=== PATIENT | female | born 1935 | race Caucasian/White ===

== ENCOUNTER 2017-06-19 01:21 | Outpatient (CLI) | payer MEDICARE, BC | END 2017-06-19 01:22 | disposition home or self-care (01) | LOC: BICRAD 01:21 | PROVIDERS: ATTEND Anesthesiology Pain Medicine | DX: M43.12 Spondylolisthesis, cervical region (principal); M47.892 Other spondylosis, cervical region | CPT/HCPCS: 72052 ==

== ENCOUNTER 2017-07-07 12:21 | Emergency (ER) | payer MEDICARE, BC ==
[2017-07-07] MEDS ORDERED: HYDROcodone/Acetaminophen 5/325 mg Tablet ONE (14:25)
== END 2017-07-07 14:58 | disposition home or self-care (01) ==
LOC: ERS 12:21
DX: M54.2 Cervicalgia (principal); E03.9 Hypothyroidism, unspecified; K21.9 Gastro-esophageal reflux disease without esophagitis; E78.5 Hyperlipidemia, unspecified; F32.9 Major depressive disorder, single episode, unspecified; I10 Essential (primary) hypertension
CPT/HCPCS: 99283

== ENCOUNTER 2017-08-22 14:19 | Outpatient (CLI) | payer MEDICARE, BC | END 2017-08-22 14:20 | disposition home or self-care (01) | LOC: BICMAMMO 14:19 | PROVIDERS: ATTEND Family Medicine | DX: Z78.0 Asymptomatic menopausal state (principal) | CPT/HCPCS: 77080 ==

== ENCOUNTER 2018-03-04 12:58 | Outpatient (CLI) | payer MEDICARE, BC ==
[2018-03-04 14:33] LABS: #Basophils 0.1 thou/uL (0.0-0.2); #Eosinphils 0.2 thou/uL (0.0-0.7); #Lymphocytes 2.7 thou/uL (1.20-3.40); #Monocytes 0.5 thou/uL (0.11-0.59); %Basophils 0.8 % (0.0-1.0); %Lymphocytes 41.8 % (21.0-51.0); %Monocytes 8.1 % (0.0-10.0); %Neutrophils 46.2 % (42.0-75.0); Hemoglobin 12.5 g/dL (12.0-16.0); Mean Corpuscular HGB CONC 33.6 g/dL (32.0-36.0); Mean Corpuscular Volume 89.2 fL (78.0-98.0); Mean Platelet Volume 7.8 fL (7.4-10.4); Platelet Count 178 thou/uL (130-400); RBC Distribution Width 12.2 % (11.5-14.5); Red Blood Cell (RBC) Count 4.18 mill/uL (4.20-5.40); White Blood Cell (WBC) Count 6.5 thou/uL (4.8-10.8)
[2018-03-04 14:38] LABS: Bilirubin Negative (Negative); Blood, Urine Negative (Negative); Clarity CLEAR (Clear); Glucose, Urine (Dipstick) Negative (Negative); Leukocyte Negative (Negative); Nitrite Negative (Negative); Protein, Urine (Dipstick) Negative (Neg-Trace); Specific Gravity, Urine 1.007 (1.002-1.036); Urobilinogen 0.2 mg/dL (0.2-1.0)
[2018-03-04 14:40] LABS: Bacteria/HPF None Seen HPF (None Seen); Hyaline Casts/LPF 0-3 HYALINE CAST LPF (0-3 Hyaline); RBC/HPF 0-3 HPF (0-3); Squamous Epithelial 0-3 HPF (0-3); WBC/HPF None Seen HPF (0-3)
--- NOTE | 2018-03-06 16:48 | EKG ---
Test Reason : Blood Pressure : / mmHG Vent. Rate : 087 BPM Atrial Rate : 087 BPM P-R Int : 138 ms QRS Dur : 082 ms QT Int : 366 ms P-R-T Axes : 033 044 023 degrees QTc Int : 440 ms Poor data quality, interpretation may be adversely affected Sinus rhythm Premature atrial complexes Otherwise normal ECG Confirmed by SONNY JOSEPH ([id number]) on 03/06/2018 4:48:04 PM Referred By: SISSY Confirmed By:SONNY JOSEPH
== END 2018-03-04 12:59 | disposition home or self-care (01) ==
LOC: LABBT 12:58
PROVIDERS: ATTEND Orthopaedic Surgery Hand Surgery
DX: Z01.818 Encounter for other preprocedural examination (principal); G56.02 Carpal tunnel syndrome, left upper limb
CPT/HCPCS: 81001; 85025; 93005; 93010

== ENCOUNTER → 2018-03-07 | Day surgery (SDC) | payer MEDICARE, BC ==
[2018-03-04 13:48] VITALS: BMI 22.3
[~2018-03-07] MED LIST: Clindamycin/D5W 900 mg/50 ml Premix Bag ONE
== END ==
LOC: SDC 13:12
PROVIDERS: ATTEND Orthopaedic Surgery Hand Surgery
DX: G56.02 Carpal tunnel syndrome, left upper limb (principal); Z79.899 Other long term (current) drug therapy; Z88.0 Allergy status to penicillin; Z88.2 Allergy status to sulfonamides; Z88.8 Allergy status to other drugs, medicaments and biological substances; Z53.9 Procedure and treatment not carried out, unspecified reason
CPT/HCPCS: J3490

== ENCOUNTER 2018-03-08 10:11 | Day surgery (SDC) | payer MEDICARE, BC ==
[2018-03-08] MEDS ORDERED: Betamet Acet/Betamet Na Ph 30 MG/5 ML VIAL ONE (10:59)
[2018-03-08] MEDS ORDERED: Bupivacaine PF 0.5% 30 ML VIAL ONE (10:59)
[2018-03-08] MEDS ORDERED: Bacitracin Zinc Ointment 30 gm TUBE ONE (10:59)
[2018-03-08] MEDS ORDERED: Ketorolac Tromethamine 30 MG/ML VIAL ONE (12:42)
[2018-03-08] MEDS ORDERED: PHENYLEPHRINE-NS 100 MCG/ML 10 ML SYRINGE ONE (15:07)
[2018-03-08] MEDS ORDERED: PROPOFOL 200 MG/20 ML VIAL ONE (15:07)
[2018-03-08] MEDS ORDERED: Lidocaine 1% PF 5 ML VIAL ONE (15:07)
[2018-03-08] MEDS ORDERED: Ondansetron HCl/PF 4 MG/2 ML Vial ONE (15:07)
--- NOTE | 2018-03-12 11:02 | OP ---
DATE OF SURGERY: 03/08/2018 POSTOPERATIVE DIAGNOSIS: Left carpal tunnel syndrome. SURGEON: Nasir Rivas M.D. ANESTHESIA: Taiwanese anesthesia, general LMA technique augmented by a 10 mL of local infiltrated blo ck. PROCEDURES PERFORMED: 1. Left carpal tunnel release. 2. Injection of Celestone in the left carpal tunnel. TOURNIQUET TIME: 8 minutes. ESTIMATED BLOOD LOSS: Less than 5 mL. SPECIMENS: None. FINDINGS: Tight transverse carpal ligament without median nerve, structural changes allograft formation. INDICATION: Failed conservative treatment with positive history, physical, and electrodiagnostic eriberto ting. DESCRIPTION OF PROCEDURE: After successful general LMA technique, the limb was then prepped and drap ed. Time out was done appropriately. Limb was exsanguinated, tourniquet inflated to 250 mmHg pressu re and incision was outlined in line with the finger as far medial, lateral, distal and proximal betw een Castellano's cardinal lines and the 5 mm distal volar wrist flexion crease. The patient then had the incision carried through the skin and subcutaneous tissue to reach the transcarpal ligament. At a p oint just in the ulnar bed of the palmaris longus, we entered the transcarpal ligament mid portion. From here, we entered using a combination of a Ringgold blade and tenotomy scissors from here distally motor nerve primary sensory branch. We then performed the same procedure from the mid portion proximally, elevating the skin of the trans carpal ligament and visualized transcarpal ligament for full release. Tourniquet deflated, hemostasis obtained. We placed oversewn 5 mL around the median nerve and closed the wound with interrupted 4-0 nylon in a horizontal mattress pattern. The patient then left the op erating room with a bulky dressing. No evidence of anesthetic or operative complication.
== END 2018-03-08 14:00 | disposition home or self-care (01) ==
LOC: SDC 10:11
PROVIDERS: ATTEND Orthopaedic Surgery Hand Surgery
PROC: 01N50ZZ Release Median Nerve, Open Approach (ICD-10-PCS; principal; 2018-03-08)
DX: G56.03 Carpal tunnel syndrome, bilateral upper limbs (principal); G56.21 Lesion of ulnar nerve, right upper limb; M18.0 Bilateral primary osteoarthritis of first carpometacarpal joints; M19.041 Primary osteoarthritis, right hand; M19.042 Primary osteoarthritis, left hand; M67.40 Ganglion, unspecified site; K21.9 Gastro-esophageal reflux disease without esophagitis; E03.9 Hypothyroidism, unspecified; Z79.899 Other long term (current) drug therapy; E78.00 Pure hypercholesterolemia, unspecified; Z88.0 Allergy status to penicillin; Z88.2 Allergy status to sulfonamides; Z88.8 Allergy status to other drugs, medicaments and biological substances
CPT/HCPCS: J0702; J1885; J2001; J2405; J2704; S0020

== ENCOUNTER 2018-10-06 13:17 | Outpatient (CLI) | payer MEDICARE, BC ==
--- NOTE | 2018-10-06 14:11 | RAD ---
PA AND LATERAL VIEWS CHEST: Date: 10/06/18 HISTORY: Atrial fibrillation. FINDINGS: Comparison made with exam of 03/10/15. The heart size is normal. The aorta is tortuous. The lungs are well expanded without focal areas of c onsolidation, pneumothoraces, or pleural effusions. There are degenerative changes in the spine and a cromioclavicular joints. IMPRESSION: No radiographic evidence of acute cardiopulmonary process. POS: TPC
== END 2018-10-06 13:18 | disposition home or self-care (01) ==
LOC: BICRAD 13:17
PROVIDERS: ATTEND Family Medicine
DX: I48.91 Unspecified atrial fibrillation (principal); M89.8X1 Other specified disorders of bone, shoulder; M18.0 Bilateral primary osteoarthritis of first carpometacarpal joints
CPT/HCPCS: 71046

== ENCOUNTER 2018-11-19 15:21 | Emergency (ER) | payer MEDICARE, BC ==
[2018-11-19 16:09] LABS: #Basophils 0.1 thou/uL (0.0-0.2); #Eosinphils 0.1 thou/uL (0.0-0.7); #Lymphocytes 2.7 thou/uL (1.20-3.40); #Monocytes 0.5 thou/uL (0.11-0.59); #Neutrophils 4.6 thou/uL (1.40-6.50); %Basophils 1.1 % (0.0-1.0); %Eosinophils 1.1 % (0.0-10.0); %Lymphocytes 33.7 % (21.0-51.0); %Monocytes 6.7 % (0.0-10.0); %Neutrophils 57.4 % (42.0-75.0); Hemoglobin 12.9 g/dL (12.0-16.0); Mean Corpuscular HGB CONC 32.7 g/dL (32.0-36.0); Mean Corpuscular Hemoglobin 28.7 pg (27.0-31.0); Mean Corpuscular Volume 87.8 fL (78.0-98.0); Mean Platelet Volume 8.4 fL (7.4-10.4); Platelet Count 189 thou/uL (130-400); RBC Distribution Width 12.2 % (11.5-14.5); Red Blood Cell (RBC) Count 4.49 mill/uL (4.20-5.40)
[2018-11-19 16:31] LABS: ALT (SGPT) 7 U/L (8-55); AST (SGOT) 13 U/L (5-34); Alkaline Phosphatase 90 U/L (40-150); Anion Gap 14 mmol/L (10-20); BUN (Urea Nitrogen) 19 mg/dL (9.8-20.1); Bilirubin, Total 0.7 mg/dL (0.2-1.2); Calc. Creatinine Clearance 0 mL/min (70-130); Calcium 9.3 mg/dL (7.8-10.44); Carbon Dioxide 24 mmol/L (23-31); Chloride 103 mmol/L (98-107); Estimated GFR-MDRD 48; Globulin 2.5 g/dL (2.4-3.5); Glucose 95 mg/dL (83-110); Lipase 22 U/L (8-78); Potassium 3.5 mmol/L (3.5-5.1); Protein, Total 6.5 g/dL (6.0-8.3); Sodium 137 mmol/L (136-145)
[2018-11-19 17:36] LABS: Bilirubin Negative (Negative); Blood, Urine Negative (Negative); Clarity CLEAR (Clear); Glucose, Urine (Dipstick) Negative (Negative); Leukocyte Negative (Negative); Nitrite Negative (Negative); Protein, Urine (Dipstick) Negative (Neg-Trace); Specific Gravity, Urine 1.008 (1.002-1.036); Urobilinogen 0.2 mg/dL (0.2-1.0)
--- NOTE | 2018-11-19 18:45 | CT ---
CT OF THE ABDOMEN AND PELVIS WITH IV CONTRAST 11/19/18 PROVIDED CLINICAL HISTORY: Abdominal pain. FINDINGS: The visualized lung bases are free of significant opacity. The liver, spleen, pancreas, kidneys and adrenal glands demonstrate an unremarkable CT appearance. Ch anges of prior cholecystectomy are seen. There is no bowel dilatation, inflammatory fat stranding, free fluid, or free air apparent. There is no evidence for appendicitis. Vascular calcifications are noted involving the abdominal aorta and its branches. The osseous structures demonstrate no concerning lytic or blastic lesions. Prominent lumbar spine deg enerative changes are seen. IMPRESSION: No evidence for an acute process. Chronic findings as above. POS: ISABEL
--- NOTE | 2018-11-22 11:09 | EKG ---
Test Reason : Blood Pressure : / mmHG Vent. Rate : 091 BPM Atrial Rate : 091 BPM P-R Int : 130 ms QRS Dur : 080 ms QT Int : 350 ms P-R-T Axes : 029 057 044 degrees QTc Int : 430 ms Sinus rhythm with Premature atrial complexes Otherwise normal ECG Confirmed by ZULEIMA MÉNDEZ M.D. ([id number]), publication editor JORDI CHAVEZ ([id number]) on 11/22/2018 11:08:54 AM Referred By: Confirmed By:ZULEIMA MÉNDEZ M.D.
== END 2018-11-19 19:51 | disposition home or self-care (01) ==
LOC: ERS 15:21
DX: R10.9 Unspecified abdominal pain (principal); E03.9 Hypothyroidism, unspecified; K21.9 Gastro-esophageal reflux disease without esophagitis; E78.5 Hyperlipidemia, unspecified; I10 Essential (primary) hypertension; F32.9 Major depressive disorder, single episode, unspecified
CPT/HCPCS: 36415; 74177; 80053; 81003; 83690; 85025; 93005

== ENCOUNTER 2019-04-01 12:21 | Outpatient (CLI) | payer MEDICARE, BC ==
--- NOTE | 2019-04-01 15:09 | CT ---
CT Chest W Con: 04/01/2019 12:00 AM CLINICAL INDICATION: Chest pain. COMPARISON: March 23, 2019. FINDINGS: Lung and Large Airways: Normal. Pleura: No effusion or mass. Vessels: There are prominent coronary artery and thoracic aortic calcifications. Heart: Normal appearing. No pericardial effusion.. Mediastinum and Debbie: Normal. Chest Wall and Lower Neck: Normal. Upper Abdomen: The gallbladder is surgically absent. Adrenal glands are normal appearing. Bones: No acute osseous abnormality. There is scattered degenerative and osteoarthritic change. There is mild thoracolumbar scoliosis. IMPRESSION: No acute abnormality.
[2019-04-01] MEDS ORDERED: ISOVUE-370 76%-LOCM 1 ML ONE (18:01)
== END 2019-04-01 12:22 | disposition home or self-care (01) ==
LOC: BICCT 12:21
PROVIDERS: ATTEND Nurse Practitioner Family
DX: R07.89 Other chest pain (principal)
CPT/HCPCS: 71260; 82565; Q9966

== ENCOUNTER 2019-05-15 16:06 | Inpatient (IN) | payer MEDICARE, BC ==
[2019-05-15 17:17] LABS: #Eosinphils 0.1 thou/uL (0.0-0.7); #Lymphocytes 2.6 thou/uL (1.20-3.40); #Monocytes 0.5 thou/uL (0.11-0.59); #Neutrophils 5.8 thou/uL (1.40-6.50); %Basophils 0.3 % (0.0-1.0); %Eosinophils 1.2 % (0.0-10.0); %Lymphocytes 28.2 % (21.0-51.0); %Monocytes 5.8 % (0.0-10.0); %Neutrophils 64.5 % (42.0-75.0); Hemoglobin 13.2 g/dL (12.0-16.0); Mean Corpuscular Hemoglobin 28.9 pg (27.0-31.0); Mean Corpuscular Volume 87.7 fL (78.0-98.0); Mean Platelet Volume 7.8 fL (7.4-10.4); Platelet Count 188 thou/uL (130-400); RBC Distribution Width 12.7 % (11.5-14.5); Red Blood Cell (RBC) Count 4.58 mill/uL (4.20-5.40)
[2019-05-15 17:26] LABS: PTT 30.6 SEC (22.9-36.1); Prothrombin Time 13.4 SEC (12.0-14.7)
--- NOTE | 2019-05-15 17:34 | CT ---
CT HEAD WITHOUT IV CONTRAST COMPARISON: 10/10/2013 HISTORY: Intermittent dizziness for several weeks. TECHNIQUE: Axial CT imaging at 5 mm intervals from vertex through skull base without contrast FINDINGS: There is diffuse cerebral and cerebellar volume loss. There is prominence of the extra-axial spaces i n the bifrontal regions which is an interval change from the prior study, but this may be related to greater degree of cerebral volume loss since prior study or possibly secondary to bilateral subdur al hygromas. 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 A few additional scattered areas of decreased attenuation are seen within the periventricular white matter which are nonspecific but likely reflective of chronic small vessel ischemic changes. There is no evidence of an acute cortical infarction, hemorrhage, mass effect, or midline shift. The ventricular system is normal in size, shape, and position. Visualized paranasal sinuses are clear. Osseous structures appear intact. IMPRESSION: 1. No acute intracranial abnormality demonstrated. 2. Cerebral and cerebellar volume loss. There is prominence of the extra-axial spaces bilaterally in each frontal region which is more prominent than on the prior study. These findings may be attributable to greater degree of cerebral volume loss. Small subdural hygromas cannot be entirely ex cluded. 3. Chronic small vessel ischemic changes.
[2019-05-15 17:41] LABS: ALT (SGPT) 7 U/L (8-55); AST (SGOT) 12 U/L (5-34); Albumin 3.7 g/dL (3.4-4.8); Alkaline Phosphatase 89 U/L (40-110); Anion Gap 17 mmol/L (10-20); BUN (Urea Nitrogen) 21 mg/dL (9.8-20.1); Bilirubin, Total 0.9 mg/dL (0.2-1.2); Calc. Creatinine Clearance 0 mL/min (70-130); Calcium 8.6 mg/dL (7.8-10.44); Carbon Dioxide 22 mmol/L (23-31); Chloride 102 mmol/L (98-107); Estimated GFR-MDRD 47; Globulin 2.1 g/dL (2.4-3.5); Glucose 91 mg/dL (83-110); Potassium 3.5 mmol/L (3.5-5.1); Protein, Total 5.8 g/dL (6.0-8.3); Sodium 137 mmol/L (136-145)
[2019-05-15 18:29] LABS: Bilirubin Negative (Negative); Blood, Urine Negative (Negative); Clarity Clear (Clear); Glucose, Urine (Dipstick) Normal (Negative); Leukocyte Negative Leu/uL (Negative); Nitrite Negative (Negative); Protein, Urine (Dipstick) Negative (Neg-Trace); Urobilinogen Normal mg/dL (Less than 2)
[2019-05-15] MEDS ORDERED: hydrALAZINE 20 MG/ML VIAL SLOW IVP PRN (18:34)
[2019-05-15] MEDS ORDERED: Acetaminophen 650 MG Suppository PR PRN (18:38)
[2019-05-15] MEDS ORDERED: Acetaminophen 325 MG TAB PO PRN (18:38)
[2019-05-15] MEDS ORDERED: Ondansetron ODT 4 MG TAB PO PRN (18:38)
[2019-05-15] MEDS ORDERED: Ondansetron PF 4 MG/2 ML Vial IVP PRN (18:38)
[2019-05-15] MEDS ORDERED: Sodium Chloride 0.45% 1,000 ML IV SCH (19:00)
[2019-05-15 19:45] LABS: Amphetamine Not Detected (NotDetected); Barbiturates Screen Not Detected (NotDetected); Benzodiazepine Screen Not Detected (NotDetected); Cocaine Metabolite Screen Not Detected (NotDetected); Medtox Control Line Valid? VALID (VALID); Medtox Reader # READER 4; Methadone Not Detected (NotDetected); Methamphetamine Not Detected (NotDetected); Opiate Screen Not Detected (NotDetected); Oxycodone Screen Not Detected (NotDetected); Phencyclidine (PCP) Not Detected (NotDetected); THC/Cannabinoid Screen Not Detected (NotDetected); Tricyclic Screen Not Detected (NotDetected)
--- NOTE | 2019-05-15 20:40 | HP ---
TIME OF ADMISSION: 1800 hours. PRIMARY CARE PHYSICIAN: Shine Garzon DO CHIEF COMPLAINT: Feeling lightheaded. HISTORY OF PRESENT ILLNESS: Ms. Mcclellan is an 83-year-old woman, who was brought in by her daughters due to complaints of lightheadedness for the last couple of weeks. She apparently had a fall on the May 06 that was unwitnessed. The patient does not recall the events and the only thing she remembers is getting up from a chair in her home where she was alone and feeling something dripping on the side of her left cheek. She was found to have a small wound with slight bleeding and developed israel-blue swelling and bruising on the left side. The patient reports having a history of migraines and has had occasional low-grade headaches. She does not remember having any falls. She does complain of numbness and weakness in both hands, but states this is associated with a history of carpal tunnel affecting her wrist bilaterally. She reports feeling lightheaded and states it has been intermittent. There is no real pattern. It does not happen every time she changes position. She has not had any recent vision changes. The family has noticed for the last few days that she has been very fidgety, often moving her legs or her arms and her lips, at times smacking her lips. She was noted yesterday to have a slight droop on the right side of her face. The patient denies noting any facial weakness or numbness. Denies any extremity weakness or numbness. Has not had an altered gait. Denies any chest pain, palpitations, or shortness of breath. According to family, she was recently placed on Eliquis by a physician at [facility] for atrial fibrillation. She was then seen by her sales manager prearranged funerals and apparently told she did not have atrial fibrillation. The patient then discontinued Eliquis on her own. In the emergency department, she underwent laboratory studies, which showed a normal full blood count. She is noted to have an elevated BUN of 21 and creatinine of 1.11, which is slightly higher from baseline. She has a GFR 47, which is stable. LFTs unremarkable. She had a urinalysis done, which was negative. A CT of the head was done showing diffuse cerebral and cerebellar volume loss with prominence of the extra-axial spaces in the bifrontal regions, felt to be an interval change compared to previous study in 2014. This was felt to be related to a greater degree of cerebral volume loss since prior study or possibly secondary to bilateral subdural hygromas. There was a low-density focus seen in the right anterior frontal lobe periventricular white matter, which was not present previously. [place] to represent a remote white matter infarction. Chronic small vessel ischemic changes present. No acute intracranial abnormality demonstrated. PAST MEDICAL HISTORY: 1. Bilateral carpal tunnel. 2. Glaucoma. 3. Hypothyroidism. 4. GERD. 5. Hyperlipidemia. 6. Hypertension. 7. Arthritis. 8. Depression. PAST SURGICAL HISTORY: 1. Bilateral carpal tunnel surgery. 2. Thyroidectomy. 3. Breast nodule removed, 2 from right, 1 from left. 4. Right eye cataract surgery. 5. x1. 6. Hysterectomy. 7. Cholecystectomy. SOCIAL HISTORY: The patient denies any tobacco use, alcohol consumption, or illicit drug use. She lives alone. ALLERGIES: GABAPENTIN, PENICILLIN, SULFA. CURRENT MEDICATIONS: 1. Detrol LA. 2. Climara. 3. Levothyroxine. 4. Losartan. 5. Hydrochlorothiazide. 6. Lumigan. PHYSICAL EXAMINATION: GENERAL: The patient appears thin, well developed, in no acute distress, resting comfortably on the stretcher. VITAL SIGNS: Temperature 97.6, pulse 100, blood pressure 114/57, respirations 17, O2 saturation 96% on room air. HEENT: Normocephalic, atraumatic. Pupils are equal, round, and reactive to light. Sclerae without icterus. Oropharynx is clear. The patient with old bruising along the left side of cheek and no bone deformity. Extraocular movements intact. No nystagmus present. NECK: Supple without lymphadenopathy. LUNGS: Clear to auscultation bilaterally without any wheezes, rales, or rhonchi. CARDIAC: Regular rate and rhythm. ABDOMEN: Soft, nontender, nondistended. Normoactive bowel sounds present. EXTREMITIES: No lower leg swelling or edema. NEUROLOGIC: Alert and oriented x3. Speech is normal. However, with constant smacking movement of her lips and fidgeting of the left arm. The patient able to answer questions appropriately and able to follow commands. Power 5/5 in all extremities. No altered sensation or numbness. Able to straight leg raise against resistance bilaterally. Reflexes intact. SKIN: Warm and dry. INVESTIGATIONS: As mentioned above in HPI. IMPRESSION AND PLAN: Ms. Mcclellan is an 83-year-old woman, who has been referred for the following. 1. Transient ischemic attack, rule out. The patient with a syncopal episode, unwitnessed, with no recollection of events on the May 06. Since then, reported to have had development of right-sided facial drooping and fidgeting of her left arm with constant uncontrollable movement of her facial muscles and left arm. The patient with no weakness or numbness on exam. We will obtain further imaging with an MRI of the brain. Echo and carotid Doppler are requested. Consultation placed to Neurology. The patient remained asymptomatic. We will require a bedside dysphagia screening prior to clearing her TIA. PT/OT consultation requested. We will start aspirin and statin. Lipid panel to be checked with morning labs. 2. Syncope. The patient presumed to have had a syncopal and unwitnessed syncopal episode, though she has no recollection of events. EKG done in the ER showed normal sinus rhythm with a rate of 94 and premature atrial contractions. She will need continuous telemetry monitoring. As mentioned, echo has been requested as well as carotid Dopplers. Orthostatic blood pressure readings to be done. 3. Hypothyroidism. We will resume home medications once verified. We will check a TSH. 4. Hypertension. Resume home medications once verified. Monitor blood pressure. 5. Acute on chronic kidney injury. The patient with elevated creatinine from baseline, but GFR stable. We will give gentle hydration and monitor renal function. Hold any nephrotoxic medications. 6. Gastrointestinal prophylaxis. On famotidine 20 mg IV b.i.d. 7. Deep venous thrombosis prophylaxis. On mechanical SCDs. 8. Code status, full. Her surrogate decision maker is her daughter, . The patient's case discussed with attending, who agrees with plan of care as described above. Job ID: [id number]
[2019-05-15] MEDS: Famotidine/PF 20 mg/2ml Vial SLOW IVP SCH (23:42)
[2019-05-15] MEDS: Atorvastatin Calcium 40 MG TAB PO SCH (23:42)
[2019-05-16 02:09] VITALS: BMI 21.7
[2019-05-16 05:49] LABS: #Basophils 0.1 thou/uL (0.0-0.2); #Eosinphils 0.2 thou/uL (0.0-0.7); #Lymphocytes 2.5 thou/uL (1.20-3.40); #Monocytes 0.6 thou/uL (0.11-0.59); #Neutrophils 3.8 thou/uL (1.40-6.50); %Basophils 0.7 % (0.0-1.0); %Eosinophils 2.6 % (0.0-10.0); %Lymphocytes 34.6 % (21.0-51.0); %Monocytes 8.8 % (0.0-10.0); %Neutrophils 53.3 % (42.0-75.0); Hemoglobin 12.5 g/dL (12.0-16.0); Mean Corpuscular HGB CONC 33.4 g/dL (32.0-36.0); Mean Corpuscular Hemoglobin 29.2 pg (27.0-31.0); Mean Corpuscular Volume 87.4 fL (78.0-98.0); Platelet Count 177 thou/uL (130-400); RBC Distribution Width 12.5 % (11.5-14.5); Red Blood Cell (RBC) Count 4.27 mill/uL (4.20-5.40); White Blood Cell (WBC) Count 7.1 thou/uL (4.8-10.8)
[2019-05-16 06:02] LABS: Anion Gap 13 mmol/L (10-20); BUN (Urea Nitrogen) 18 mg/dL (9.8-20.1); Calc. Creatinine Clearance 29 mL/min (70-130); Calcium 8.5 mg/dL (7.8-10.44); Carbon Dioxide 23 mmol/L (23-31); Cardiac Risk 3.4 (Less than 4.5); Chloride 103 mmol/L (98-107); Cholesterol 171 mg/dl (< 200 Desired); Estimated GFR-MDRD 49; Glucose 93 mg/dL (83-110); HDL Cholesterol 51 mg/dL (>60 Neg Risk); LDL Cholesterol, Calculated 107 mg/dL; Potassium 3.9 mmol/L (3.5-5.1); Sodium 135 mmol/L (136-145); Triglycerides 67 mg/dL (Less than 150)
[2019-05-16] MEDS: Levothyroxine Sodium 88 MCG TAB PO SCH (06:35)
[2019-05-16] MEDS ORDERED: FLU VACC TS2019-20(65YR UP)/PF 180 MCG/0.5 ML SYRINGE IM ONE (09:00)
[2019-05-16] MEDS ORDERED: Aspirin 81 mg Enteric Coated Tablet PO SCH (09:00)
[2019-05-16] MEDS ORDERED: Prevnar 13-Val Conj/PF 0.5 ML SYRINGE IM ONE (09:00)
--- NOTE | 2019-05-16 09:10 | CON ---
DATE OF CONSULTATION: 05/16/2019 CONSULTING PHYSICIAN: Hospitalist Service. IMPRESSION: 1. Facial asymmetry of questionable significance. 2. Lightheaded episodes, probably cardiac in origin. PLAN: Your workup is you have undertaken. HISTORY OF PRESENT ILLNESS: Ms. Mcclellan is an 83-year-old white female, who has been having some lightheaded episodes. This has been going on for the last 9 days or so. She was thought to have some facial droop and was brought in by her family for evaluation. She had a CT scan of the brain done, which showed some chronic small vessel ischemic changes. She denies that she is having any trouble with her speech, swallowing, lateralized weakness or numbness. She reports the lightheadedness is occurring sporadically over the last several days, but she has not lost consciousness. She had an unexplained injury to her left eye, which she reports was present after she woke up. This was several days ago. She previously was seen by Cardiology due to concerns about atrial fibrillation. This issue apparently was dismissed. She had been on Eliquis in the past and this was discontinued. PAST MEDICAL HISTORY: Gout, migraine headaches. ALLERGIES: PENICILLIN, GABAPENTIN, AND SULFA. SOCIAL HISTORY: No tobacco or alcohol. FAMILY HISTORY: Noncontributory. REVIEW OF SYSTEMS: Ten-system review of systems is otherwise negative. MEDICATIONS: Reviewed. PHYSICAL EXAMINATION: GENERAL: She is a healthy-appearing elderly lady, lying in bed, in no acute distress. VITAL SIGNS: Blood pressure 121/57, pulse 72, respirations 16, and temperature 97.9. HEENT: Pupils are equal. Conjunctivae are clear. Oropharynx clear. Cranium; normocephalic and atraumatic. NECK: Supple. No lymphadenopathy. EXTREMITIES: No cyanosis or edema. NEUROLOGIC: She is alert and cooperative. Her speech is fluent and clear. Cranial nerve exam showed some facial asymmetry with a slight flattening present on the right. Motor exam showed good cat skinner strength bilaterally. There is no fix or drift. No tremor or dysmetria is present. Sensation was intact to touch. She can walk independently. Plantar responses are downgoing. IMAGING DATA: EKG, normal sinus rhythm. LABORATORY STUDIES: Unremarkable CBC, coags, and chemistry panel. Cholesterol ratio is 3.4. Urinalysis was clear. Toxicology screen was negative. SUMMARY: This is an elderly lady with a slight facial asymmetry. I doubt it has much clinical significance. She has been having some lightheaded episodes, which could be related to hypotension or possibly cardiac arrhythmia. I agree with your workup in that regard. Given her current findings, I would not recommend anything more than aspirin daily. Job ID: [id number]
[2019-05-16] MEDS: Loratadine 10 MG TAB PO SCH (09:45)
[2019-05-16] MEDS: Trospium 20 MG TAB PO SCH (09:45)
[2019-05-16] MEDS: Famotidine/PF 20 mg/2ml Vial SLOW IVP SCH (09:46)
--- NOTE | 2019-05-16 10:09 | ULT ---
EXAM: Carotid vascular duplex with color and spectral Doppler imaging: HISTORY: TIA/CVA COMPARISON: None FINDINGS: Very extensive intraluminal dense thrombus resulting in occlusion of the distal right CCA and proxima l ICA. Right ICA: PSV: Occluded EDV: Occluded ICA/CCA ratio: Occluded Left ICA: PSV: 79 cm/s EDV: 25 cm/s ICA/CCA ratio: 0.6 Antegrade flow in the left vertebral artery. The right vertebral artery was not demonstrated.. 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 Right vertebral artery not demonstrated.
--- NOTE | 2019-05-16 12:21 | MRI ---
EXAM: MRI Brain WO Con PROVIDED CLINICAL HISTORY: Intermittent dizziness for several weeks. Family reports right-sided facial droop. COMPARISON: CT head on 05/15/2019. FINDINGS: There is a very small right subdural collection demonstrating low T1 and high T2-weighted signal inte nsity as well as low signal intensity on diffusion-weighted images. Findings are most compatible with a small subdural hematoma likely subacute to chronic in origin. Probable trace subdural collecti on on the left, although much less perceptible and very small in size. Greatest transverse dimension on the right is 5-6 mm. There is diffuse cerebral volume loss. Increased FLAIR and T2-weighted signal intensity is seen withi n the periventricular and subcortical white matter compatible with chronic small vessel ischemic changes. Cavitated lacunar infarction is seen in the right frontal johansen radiata. There is no eviden ce of an acute infarction. The septum pellucidum and third ventricle are in the midline. Appropriate flow voids are demonstrated at the base of the brain with mild ectasia of the left middle cerebral artery. The paranasal sinuses are clear. The northern [place]rapaho lens on the right is not visualized. IMPRESSION: 1. Chronic small vessel ischemic changes and cerebral volume loss. 2. No acute infarction is identified. 3. Very small right frontal and trace left frontal subacute to chronic subdural hemorrhages.
--- NOTE | 2019-05-16 13:18 | PDOC.HOSPP ---
- Subjective Subjective: Seen and examined. Patient states that she had a remote fall on May 06. Very small bilateral subdural hematoma seen on MRI. I do not appreciate any focal neurologic deficits on neurologic exam. All questions answered in detail. Patient does not complain of any dizziness currently. - Objective Vital Signs & Weight: Vital Signs (12 hours) Temp Pulse Resp BP BP BP BP 05/16/19 12:25 98.1 F 97 18 111/62 05/16/19 10:02 127/63 116/57 L 125/58 L 05/16/19 07:24 97.9 F 72 16 121/57 L 05/16/19 04:00 97.6 F 86 16 117/60 Pulse Ox 05/16/19 12:25 99 05/16/19 10:02 05/16/19 07:24 99 05/16/19 04:00 98 Weight Weight 100 lb 11.2 oz I&O: 05/15/19 05/16/19 05/17/19 06:59 06:59 06:59 Intake Total 616 240 Balance 616 240 Result Diagrams: 05/16/19 05:33 05/16/19 05:33 Radiology Reviewed by me: Yes Hospitalist ROS - Review of Systems All other systems reviewed; all pertinent +/- noted in HPI/Subj - Medication Medications: Active Medications Generic Name Dose Route Start Last Admin Trade Name Braulio PRN Reason Stop Dose Admin Aspirin 81 mg 05/16/19 09:00 05/16/19 09:46 Ecotrin PO 81 mg DAILY STERLING Administration Atorvastatin Calcium 40 mg 05/15/19 21:00 05/15/19 23:42 Lipitor PO 40 mg HS STERLING Administration HCTZ/Losartan Potassium 1 tab 05/16/19 09:00 05/16/19 09:45 Hyzaar 50/12.5 PO 1 tab QAM STERLING Administration Levothyroxine Sodium 88 mcg 05/16/19 06:00 05/16/19 06:35 Synthroid PO 88 mcg 0600 STERLING Administration Loratadine 10 mg 05/16/19 09:00 05/16/19 09:45 Claritin PO 10 mg QAM STERLING Administration Sodium Chloride 10 ml 05/15/19 18:38 05/16/19 07:42 Flush - Normal Saline IVF Not Given Q12H STERLING Trospium 20 mg 05/16/19 09:00 05/16/19 09:45 Trospium PO 20 mg QAM STERLING Administration - Exam General Appearance: NAD, awake alert Eye: PERRL ENT: normocephalic atraumatic, moist mucosa Neck: supple, symmetric, no lymphadenopathy Heart: no murmur, no gallops, no rubs Respiratory: CTAB, no wheezes, no rales, no ronchi Gastrointestinal: soft, non-tender, no rigidity Extremities: no clubbing, no edema Skin: no lesions, no rashes Neurological: cranial nerve grossly intact, normal sensation to touch, no focal deficits. negative: speech deficit Musculoskeletal: normal tone, normal strength Psychiatric: normal affect, A&O x 3 Hosp A/P (1) Subdural hematoma Code(s): S06.5X9A - TRAUM SUBDR HEM W LOC OF UNSP DURATION, INIT Status: Acute (2) Fall Code(s): W19.XXXA - UNSPECIFIED FALL, INITIAL ENCOUNTER Status: Acute (3) Dizziness Code(s): R42 - DIZZINESS AND GIDDINESS Status: Acute (4) HTN (hypertension) Code(s): I10 - ESSENTIAL (PRIMARY) HYPERTENSION Status: Acute (5) HLD (hyperlipidemia) Code(s): E78.5 - HYPERLIPIDEMIA, UNSPECIFIED Status: Acute (6) Hypothyroid Code(s): E03.9 - HYPOTHYROIDISM, UNSPECIFIED Status: Acute - Plan Plan: stroke unit - medical unit telemetry neurology consultation, recommendations appreciated MRI the brain with small subdural hematoma's bilaterally fall with trauma on May 06 likely cause of subdural hematoma's hold aspirin, NSAIDs, or any blood thinners blood pressure control statin continue other home medications as able echocardiogram pending ultrasound of the carotid with complete occlusion of the right, no comment on the left will need to follow up in the outpatient setting and may benefit from a CTA head and neck blood sugar control
[2019-05-16] MEDS: Atorvastatin Calcium 40 MG TAB PO SCH (20:32)
[2019-05-16] MEDS ORDERED: Latanoprost 0.005% Ophth Soln 2.5 ml Bottle EA EYE SCH (21:00)
[2019-05-17 04:24] VITALS: TEMP 98.2
[2019-05-17] MEDS: Levothyroxine Sodium 88 MCG TAB PO SCH (05:16)
[2019-05-17 08:07] VITALS: BP 144/70
[2019-05-17] MEDS ORDERED: Estradiol 0.05mg/24 Hour Patch (Weekly) TD SCH (09:00)
[2019-05-17] MEDS ORDERED: Famotidine/PF 20 mg/2ml Vial SLOW IVP SCH (09:00)
[2019-05-17] MEDS: Loratadine 10 MG TAB PO SCH (09:07)
[2019-05-17] MEDS: Trospium 20 MG TAB PO SCH (09:07)
--- NOTE | 2019-05-17 18:28 | DIS ---
DATE OF ADMISSION: 05/16/2019 DATE OF DISCHARGE: 05/17/2019 REASON FOR HOSPITALIZATION: Dizziness and remote fall. SIGNIFICANT FINDINGS: The patient was found to have very small bilateral subdural hematomas on MRI of the brain. PROCEDURES PERFORMED AND TREATMENTS RENDERED: The patient was admitted to the medical unit with telemetry and monitored on continuous telemetry for her hospitalization. The patient was seen and evaluated by Neurology, please see full consultation and progress notes for details. The patient had a stroke workup including MRI of the brain, ultrasound of the carotids, and echocardiogram-please see full report for details. The patient recommended safe for discharge by Neurology on 05/17/2019, with close followup in the outpatient setting. The patient is recommended to take all medications as directed. The patient is recommended to abstain from aspirin, nonsteroidal anti-inflammatory drugs such as Motrin, ibuprofen, Aleve, or naproxen. The patient is also recommended to abstain from Eliquis or any other blood thinner medications. CONDITION ON DISCHARGE: Stable. SPECIFIC INSTRUCTIONS FOR THE PATIENT/FAMILY: 1. The patient is recommended to abstain from any blood thinning medications such as but not limited to Eliquis, aspirin, NSAIDs such as ibuprofen, naproxen, Aleve, or any other nonsteroidal anti-inflammatory drugs or blood thinning medications. 2. The patient is recommended to follow up with Neurology in the outpatient clinic in the next 3 to 4 weeks. 3. The patient is recommended to have followup neurologic imaging as coordinated by Neurology with either a CT scan or an MRI of the brain. 4. The patient is recommended to follow up with primary care physician in the next 5 to 7 days. 5. The patient is recommended to take all home medications as directed, to be re-evaluated by primary care physician and Neurology in the outpatient setting. DISCHARGE MEDICATIONS: 1. Tramadol 50 mg one tablet p.o. daily p.r.n. pain. 2. Tolterodine 4 mg p.o. q.a.m. 3. Losartan/hydrochlorothiazide 50/12.5 one tablet p.o. q.a.m. 4. Synthroid 88 mcg one tablet p.o. q.a.m. 5. Estradiol patch 0.05 mg topical q.7 days. 6. Codeine 30 mg p.o. p.r.n. cough. 7. Zyrtec 10 mg p.o. q.a.m. p.r.n. allergy symptoms. 8. Bimatoprost one drop each eye at bedtime. 9. Atorvastatin 40 mg one tablet p.o. at bedtime. 10. Tylenol regular strength 650 mg q.4 hours p.r.n. pain or fever. HOSPITAL COURSE: Ms. Mcclellan is a very pleasant 83-year-old female who presents to [facility] on 05/15/2019, after a remote fall and dizziness. The patient was admitted to the Stroke Unit and monitored on continuous telemetry. The patient was seen and evaluated by Neurology-please see full consultation and progress notes for details. The patient had appropriate CVA workup including a CT scan of the brain, carotid ultrasound, echocardiogram, and MRI of the brain-please see full radiographic reports for details. It was found that the patient had very small bilateral subdural hematomas and a subacute chronicity. These are likely secondary to the patient's recent fall. The patient did show me on her telephone the pictures after the fall and she did have significant periorbital bruising, however, there were no other signs of acute fracture or other acute pathology seen on CT scan or MRI of the brain. The patient worked with Physical Therapy and Occupational Therapy and was recommended safe for discharge home. Neurology recommending the patient safe for discharge home with followup in the outpatient setting. The patient may require followup imaging for resolution of subdural hematoma. This can be completed with CT scan or MRI of the brain in the outpatient setting in the upcoming weeks as scheduled by neurologist. The patient was recommended to abstain from any blood thinning medications including but not limited to Eliquis, aspirin, Motrin, ibuprofen, naproxen, Aleve-or any other blood thinning medications or nonsteroidal anti-inflammatory drugs. The patient repeated this word for me back with good comprehension in the presence of nursing staff. The patient recommended safe for discharge with close followup in the outpatient setting with primary care physician in the next 5 to 7 days and Neurology in the next 3 to 4 weeks. The patient is recommended to take all medications as directed. The patient is recommended to return to acute care hospital immediately if signs or symptoms return, worsen, or any other new symptoms occur. TIME SPENT: Greater than 36 minutes spent coordinating care and discharge process for this patient. Job ID: [id number]
--- NOTE | 2019-05-19 08:16 | PQF ---
LEILANI SOLANO ERIK [id number] [facility] [id number] CLINICAL DOCUMENTATION CLARIFICATION FORM: POST DISCHARGE Addendum to original discharge summary date: ____ Late entry note date: __ DATE: 05/19/2019 ATTN:MARIO GORDILLO Please exercise your independent, professional judgment in responding to the clarification form. Clinical indicators are provided on the bottom of this form for your review Please check appropriate box(s): Conflicting documentation was noted in the Medical Record, please clarify if patient is being treated/monitored for: [ XX ] Subdural hematoma with LOC of unspecified duration, initial encounter [ ] she has not lost consciousness [ ] Other diagnosis [ ] Unable to determine For continuity of documentation, please document condition throughout progress notes and discharge summary. Thank You. CLINICAL INDICATORS - SIGNS / SYMPTOMS/ LABS -Subdural hematoma with LOC of unspecified duration, initial encounter- Hospital PN, 05/16, Ramiro Larson DO -she has not lost consciousness- Consultation report, 05/16, Tea Caba MD -very small bilateral subdural hematomas and a subacute chronicity--DS, 05/17, MARIO GORDILLO DO -some lightheaded episodes, which could be related to hypotension- Consultation report, 05/16, Tea Caba MD RISK FACTORS -Remote fall- DS, 05/17, MARIO GORDILLO DO -HTN- Hospital PN, 05/16Mario Nelson DO TREATMENT -Sodium chloride.IV-MAR, 05/15, (This form is maintained as a part of the permanent medical record) 2014 [employer]. All Rights Reserved Marissa Cartagena [not provided] [not provided] MTDD
[2019-05-20 15:21] LABS: ANA Symphony (Qualitative) Negative (Negative); ANA Symphony (Quantitative) 0.1 Ratio (< 0.7 Negative); dsDNA IgG Antibody 0.5 IU/mL (<10 Negative)
[2019-05-22] MEDS ORDERED: ESTRADIOL 0.0375 MG TD SCH (09:00)
== END 2019-05-17 11:25 | disposition home or self-care (01) | DRG 83 ==
LOC: ERS 16:06 → 2SE 18:20 → OBSVTOIN 05-16 13:23
PROVIDERS: ADMIT Internal Medicine; ATTEND Internal Medicine
DX: S06.5X9A Traumatic subdural hemorrhage with loss of consciousness of unspecified duration, initial encounter (principal); N17.9 Acute kidney failure, unspecified; R42 Dizziness and giddiness; W18.39XA Other fall on same level, initial encounter; E03.9 Hypothyroidism, unspecified; K21.9 Gastro-esophageal reflux disease without esophagitis; E78.5 Hyperlipidemia, unspecified; I10 Essential (primary) hypertension; M19.90 Unspecified osteoarthritis, unspecified site; F32.9 Major depressive disorder, single episode, unspecified; R29.810 Facial weakness; G43.909 Migraine, unspecified, not intractable, without status migrainosus; Z98.41 Cataract extraction status, right eye; Z90.710 Acquired absence of both cervix and uterus; Z90.49 Acquired absence of other specified parts of digestive tract; Z88.0 Allergy status to penicillin; Z88.2 Allergy status to sulfonamides; Z88.8 Allergy status to other drugs, medicaments and biological substances
CPT/HCPCS: 36415; 70450; 70551; 80048; 80053; 80061; 80306; 81003; 82140; 84443; 84484; 85025; 85610; 85730; 86038; 86225; 90471; 90662; 90670; 93005; 93306; 93880; G0008; G0009; S0028

== ENCOUNTER 2019-06-04 10:42 | Inpatient (IN) | payer MEDICARE, BC ==
[2019-06-04 11:17] LABS: #Lymphocytes 1.3 thou/uL (1.20-3.40); #Monocytes 0.3 thou/uL (0.11-0.59); #Neutrophils 5.4 thou/uL (1.40-6.50); %Basophils 0.4 % (0.0-1.0); %Eosinophils 0.4 % (0.0-10.0); %Lymphocytes 18.1 % (21.0-51.0); %Monocytes 4.1 % (0.0-10.0); Mean Corpuscular HGB CONC 32.4 g/dL (32.0-36.0); Mean Corpuscular Hemoglobin 29.1 pg (27.0-31.0); Mean Corpuscular Volume 89.8 fL (78.0-98.0); Mean Platelet Volume 7.9 fL (7.4-10.4); Platelet Count 214 thou/uL (130-400); RBC Distribution Width 12.4 % (11.5-14.5); Red Blood Cell (RBC) Count 4.12 mill/uL (4.20-5.40)
[2019-06-04 11:24] LABS: PTT 31.5 SEC (22.9-36.1); Prothrombin Time 13.3 SEC (12.0-14.7)
--- NOTE | 2019-06-04 11:28 | CT ---
CT HEAD WITHOUT CONTRAST: Date: 06/04/19 INDICATION: Stroke alert. Right side vision loss. History of stroke. Comparison made to head CT of 05/15/19 and MRI head of 05/16/19. FINDINGS: Small right subdural hematoma was described previously. There is now evidence of acute enlargement of this right subdural hematoma. There are acute and chronic components present. Maximal dimension francisca ured at 9 mm superiorly. This does produce effacement of the right frontoparietal cortex, which is al so a new finding. There is now evidence of acute components in a small left subdural collection along the left frontal lobe without mass effect. Chronic ischemic change. Lacunar infarct in the periventricular white matter adjacent to the anterior horn on the right again noted. Lacunar infarct in the left periventricular white matter again noted. No parenchymal mass. No evidence of acute cortical infarct or hemorrhage. IMPRESSION: Enlarging right subdural hematoma with acute and chronic components. Also evidence of acute component in a small left subdural hematoma over the left frontal lobe. Findings relayed to the emergency physician at 1051 hours. CODE CR. POS: OFF
[2019-06-04 11:38] LABS: ALT (SGPT) 11 U/L (8-55); AST (SGOT) 19 U/L (5-34); Albumin 3.5 g/dL (3.4-4.8); Alkaline Phosphatase 105 U/L (40-110); Anion Gap 15 mmol/L (10-20); BUN (Urea Nitrogen) 14 mg/dL (9.8-20.1); Bilirubin, Total 0.7 mg/dL (0.2-1.2); Calc. Creatinine Clearance 0 mL/min (70-130); Calcium 8.7 mg/dL (7.8-10.44); Carbon Dioxide 21 mmol/L (23-31); Chloride 103 mmol/L (98-107); Estimated GFR-MDRD 42; Globulin 2.7 g/dL (2.4-3.5); Glucose 114 mg/dL (83-110); Potassium 4.2 mmol/L (3.5-5.1); Protein, Total 6.2 g/dL (6.0-8.3); Sodium 135 mmol/L (136-145)
[2019-06-04] MEDS ORDERED: Iopamidol 370 76% 50 ML VIAL FS ONE (11:47)
--- NOTE | 2019-06-04 12:09 | CT ---
CTA of the head with IV contrast and 3-D reformatted imaging. CTA of the neck with IV contrast and 3-D reformatted imaging. INDICATION: Stroke alert; 83-year-old female with right sided vision loss with history of stroke. Dif ficulty in seeing on the right side with altered speech COMPARISON: CT the brain without contrast performed earlier on June 04, 2019 at 10:49 AM and a ca rotid ultrasound dated May 16, 2019. FINDINGS: CTA OF THE HEAD WITH CONTRAST: CTA OF THE BRAIN: Right ICA: Completely occluded. There is reconstitution through the knik of Cotton at the level of the supraclinoid right ICA. Right MCA: Slightly diminutive but patent. Right DONNY: Patent. ACOM: Patent. Left ICA: Patent. Left MCA: Patent. Left DONNY: Patent. PCOMs: Patent. Vertebral arteries: Patent. Basilar Artery: Patent. autocutter: Patent. Incidentals: Acute on chronic right and left frontoparietal convexity subdural hematomas as describe d on the prior noncontrast CT the brain. No overt active extravasation demonstrated. No abnormal enhancement within the brain parenchyma. CTA OF THE NECK WITH CONTRAST: Right CCA: Completely occluded Right ICA: Completely occluded Right Subclavian: Patent. Right Vertebral Artery: Patent. Left CCA: Patent. Left ICA: Patent. Left Subclavian: Patent. Left Vertebral Artery: Patent. Aerodigestive tract: Clear. Parotids/Submandibular/Thyroid glands: Normal. Lymph nodes: No pathologically enlarged lymph nodes. Lung Apices: Clear. Bones: No acute osseous abnormality. Incidentals: None. IMPRESSION: 1. 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 Reconsti tution at the level the right supraclinoid ICA. 2. No additional hemodynamically significant stenosis demonstrated. 3. Acute on chronic bilateral frontal parietal convexity subdural hematomas. No definite active extra vasation noted.
--- NOTE | 2019-06-04 12:33 | CON ---
DATE OF CONSULTATION: HISTORY OF PRESENT ILLNESS: The patient is an 83-year-old female with a past medical history of paroxysmal atrial fibrillation, hypothyroidism, GERD, hypertension, hyperlipidemia, who presented to the emergency department for acute left-sided vision changes and left-sided weakness. The patient was seen earlier this month on the medicine service, following episodes of dizzy spells. At that time, the patient was evaluated by Medicine and Neurology with CT-MRI, which was notable for small chronic hygromas as well as chronic ischemic changes and an old right lacunar infarct. Considering her hygromas, no anticoagulants were started at that time. She was discharged to home and had plans to follow up with Neurology, outpatient. However, she had development of acute left upper and left lower extremity weakness as well as left-sided visual loss and some slurred speech. She was brought to the emergency department and had a noncontrast CT of head on arrival, which showed slight enlargement of the bilateral subdural hematomas with some acute on chronic component. These are still quite small and there is no mass effect or midline shift. I visited the patient at the bedside. She has a GCS of 15. She is A and O x3. She is noted to have some hemianopsia on the left and some slight weakness in the left upper and left lower extremity, 4/5. PAST MEDICAL HISTORY: Remote history of paroxysmal atrial fibrillation, hypothyroid, GERD, hypertension, and hyperlipidemia. PAST SURGICAL HISTORY: Carpal tunnel bilateral, thyroid surgery, breast nodule surgery, cataract surgery, hysterectomy, and cholecystectomy. SOCIAL HISTORY: The patient lives at home. Does not smoke, drink, or use any drugs. REVIEW OF SYSTEMS: Per HPI. PHYSICAL EXAMINATION: VITAL SIGNS: BP is 125/70, pulse is 88, respirations 15, the patient is 96% on room air, and temperature is 98.6. CONSTITUTIONAL: GCS 15. Awake and alert, in no acute distress. HEENT: Head, normocephalic and atraumatic. Left-sided facial droop is noted. Eyes, pupils are equal and reactive to light. Extraocular movements are intact. On visual field exam, she appears to have some left-sided hemianopsia. ENT; oral mucosa is pink, intact, and moist. Normal voice. NECK: Nontender to palpation. Free active range of motion. No meningismus or nuchal rigidity. RESPIRATORY: Symmetric chest expansion. No evidence of dyspnea. CARDIOVASCULAR: Regular rate and rhythm. MUSCULOSKELETAL: No obvious deformities. Symmetric pulses. She is slightly weak in the upper and lower extremity. On the left side, 4/5. She has some left upper and left lower extremity weakness. NEUROLOGIC: She is A and O x4. Her speech is slightly slurred. She has a left-sided facial droop. ASSESSMENT AND PLAN: This is an 83-year-old female with recent onset left-sided vision loss and left-sided weakness. Her CT does show some acute on chronic bilateral subdural hematomas, however, these remain quite small without mass effect or midline shift. We do not feel that these are likely the cause of her acute neurologic changes. No acute neurosurgical intervention is recommended at this time. I discussed with Dr. Dupree in the ER and he plans to get a CTA of head and neck for additional evaluation. If any pathology is found that would require interventional NS with angio, she would require transfer to higher level of care. If not, she should be admitted to the Medicine Team for further stroke workup. I have discussed this plan with Dr. Peralta, who is in agreement. Job ID: [id number] MTDD
--- NOTE | 2019-06-04 15:27 | HP ---
CHIEF COMPLAINT: Acute onset of left-sided weakness. HISTORY OF PRESENT ILLNESS: The patient is an 83-year-old female with a past medical history of hypertension, hyperlipidemia, GERD, hypothyroidism, paroxysmal atrial fibrillation, recent history of transient ischemic attack and hospitalization for that, and bilateral subdural hematomas from falls in the past, who was brought to the emergency room for evaluation of weakness and was found to have somewhat enlarged subdural hematomas on her CT of the brain, which was compared with the previous pictures taken less than a month ago, and a neurosurgical consultation was requested by emergency room physician. The patient was seen by a neurology team on-call and impression was that the slight enlargement of her subdural hematomas seen on the CT would not give us this clinical picture of left-sided weakness, and the patient was referred to the Medical Service for evaluation for possible CVA. Apparently, yesterday, the patient had the dinner with the family and she complained about some pain in the neck, but later on, she drove herself home. She lives alone and the next day, she started having this weakness she complains about. PAST MEDICAL HISTORY: Positive for: 1. Hypothyroidism. 2. Hyperlipidemia. 3. Hypertension. 4. Chronic kidney disease, stage 2. 5. Bilateral subdural hematomas. 6. Glaucoma. 7. Gastroesophageal reflux disease. 8. Arthritis. 9. History of depression. PAST SURGICAL HISTORY: 1. Bilateral carpal tunnel surgery. 2. Thyroidectomy. 3. Breast nodule removed bilaterally. 4. Right eye cataract surgery. 5. x1. 6. Hysterectomy. 7. Cholecystectomy. SOCIAL HISTORY: The patient denies any alcohol intake, cigarette smoking, or illicit drug use. She lives alone. ALLERGIES: GABAPENTIN, PENICILLIN, AND SULFA. MEDICATIONS: Please refer to the list, which will be available later today. FAMILY HISTORY: We know that her father had CVA at unknown age and mother, we are not able to know how she passed and what age. Primary doctor is Dr. Shine Garzon. The patient is full code and surrogate decision maker is Scott Capone, the patient's daughter. REVIEW OF SYSTEMS: All systems were reviewed and only symptoms mentioned in HPI are positive and the rest are negative. PHYSICAL EXAMINATION: VITAL SIGNS: Blood pressure is 128/59, pulse is 86, respiratory rate is 24, O2 saturation is 98%. HEENT: Her head is normocephalic. Pupils approximately 3 to 4 mm and responding to light properly. Sclerae are not icteric. Conjunctivae are pinkish. Oral mucosa is slightly dry. NECK: Supple. LUNGS: Clear. HEART: S1 and S2, normal. No S3. No S4. ABDOMEN: Soft and nontender. Bowel sounds are present. No organomegaly. EXTREMITIES: No clubbing, cyanosis, or edema. Pulses on both tibialis posterior and dorsalis pedis arteries similar bilaterally and slightly diminished. NEUROLOGIC: She is able to move her extremities, but she has some weakness affecting the left upper arm and left lower extremity, approximately 4/5 both, similar. She has left-sided droop. On eye examination, she tends to look to the right, but she is able to move in both directions right and left when she is forced. Her visual malik seem to be normal, but examination is very limited because of lack of good cooperation from the patient. She follows my commands. LABORATORY DATA: White count of 7.0, hemoglobin 12.0, hematocrit 37.0, and platelet count is 214. PT 13.3, INR 1.0, and aPTT 31.5. Sodium 135, potassium 4.2, chloride 103, CO2 of 21, BUN 14, creatinine 1.23, glucose 114, and alkaline phosphatase 105. Troponin-I 0.015. LFTs within normal limits. The rest of chemistry within normal limits. CT of the brain personally reviewed by me showed enlarging right subdural hematoma with acute on chronic components and some evidence of acute component in the small left subdural hematoma over the left frontal lobe. CT angiogram of tunica-biloxi of Cotton with contrast obviously showed stable completely occluded right common carotid artery and right internal carotid artery, which shows reconstitution at the level of the right supraclinoid ICA, also acute on chronic bilateral frontoparietal convexity of subdural hematomas. There was no any definite active extravasation noted. There was no any additional hemodynamically significant stenosis demonstrated. IMPRESSION: 1. New onset of left-sided weakness with left facial droop, most likely cerebrovascular accident acute with negative CT of the brain for this finding. We will admit the patient for MRI. She is not supposed to use any antiplatelets or any anticoagulants or NSAIDs because of the findings on the brain CAT scan. 2. Chronic renal insufficiency. 3. Hypothyroidism. 4. Hyperlipidemia. 5. Hypertension. 6. History of depression. 7. Chronic arthritis. 8. Bilateral carpal tunnel syndrome. 9. Glaucoma. PLAN: Plan is to admit her to stroke unit full admission. IV normal saline at 75 mL/h. She is going to be n.p.o. since she failed second water test in the emergency room, we will have more evaluation while she gets to the Stroke Unit. We will do SCDs for DVT prophylaxis. We will review her home medications and start using them as she regains to swallowing or we will have to use IV form as needed. The family is informed that we are very limited in terms of treatment for this lady since she is not able to have any anticoagulants, any anti-platelet medications, she is basically admitted for MRI of the brain without contrast to be done and neurology consultation. Job ID: [id number]
[2019-06-04 15:46] VITALS: BMI 22.4
[2019-06-04] MEDS: Acetaminophen 500 MG TAB PO PRN ×2 (16:51→22:55)
[2019-06-04] MEDS: Sodium Chloride 0.9% 1,000 ML IV SCH (16:51)
--- NOTE | 2019-06-04 18:10 | RAD ---
RADIOGRAPH CERVICAL SPINE 3 VIEWS: DATE: 06/04/2019 HISTORY: Cervical trauma in 83-year-old female. FINDINGS: Because of high-grade degenerative changes and suboptimal positioning, with patient's right shoulder obscuring all levels inferior to C3, and overlap of osseous structures because of the positioning and severe degenerative changes, this 3 view plain radiograph of the cervical spine is nondiagnostic. However, reconstructions of the CT angiogram of the neck of earlier today provide good evaluation of the cervical spine with regard to fracture. Vertebral body heights are maintained. There is no prevertebral soft tissue swelling. There is no cali dence of fracture. There is no evidence of jumped or perched facets. There are degenerative disc changes and degenerative facet changes. Chronic grade 1 anterolisthesis of C2 on C3, C3 on C4, and C4 on C5, due to high-grade facet DJD. IMPRESSION: 1) No evidence of acute fracture or acute traumatic subluxation. 2) advanced cervical spondylosis.
[2019-06-04] MEDS ORDERED: Vicks VapoRub 50 gm Jar TOP PRN (21:36)
[2019-06-05] MEDS: Acetaminophen 500 MG TAB PO PRN (05:09)
[2019-06-05 05:35] LABS: #Lymphocytes 2.2 thou/uL (1.20-3.40); #Monocytes 0.5 thou/uL (0.11-0.59); #Neutrophils 3.7 thou/uL (1.40-6.50); %Basophils 0.1 % (0.0-1.0); %Eosinophils 0.7 % (0.0-10.0); %Lymphocytes 34.2 % (21.0-51.0); %Monocytes 7.9 % (0.0-10.0); %Neutrophils 57.1 % (42.0-75.0); Hemoglobin 10.3 g/dL (12.0-16.0); Mean Corpuscular HGB CONC 32.8 g/dL (32.0-36.0); Mean Corpuscular Hemoglobin 28.5 pg (27.0-31.0); Mean Platelet Volume 7.9 fL (7.4-10.4); Platelet Count 196 thou/uL (130-400); RBC Distribution Width 12.3 % (11.5-14.5); White Blood Cell (WBC) Count 6.4 thou/uL (4.8-10.8)
[2019-06-05] MEDS: Sodium Chloride 0.9% 1,000 ML IV SCH ×3 (06:22→22:34)
[2019-06-05 07:07] LABS: Bilirubin Negative (Negative); Blood, Urine 1+ (Negative); Clarity Clear (Clear); Glucose, Urine (Dipstick) Normal (Negative); Leukocyte Negative Leu/uL (Negative); Nitrite Negative (Negative); Protein, Urine (Dipstick) 10 mg/dL (Neg-Trace); Squamous Epithelial 0-3 HPF (0-3); Urobilinogen Normal mg/dL (Less than 2); WBC/HPF 0-3 HPF (0-3)
[2019-06-05 07:11] LABS: Bacteria/HPF 1+ HPF (None Seen); Urine Culture Reflex Yes Yes
--- NOTE | 2019-06-05 08:03 | CT ---
PRELIMINARY REPORT/[facility]/EMERGENCY AFTER HOURS PROCEDURE: PROCEDURE INFORMATION: Exam: CT Head Without Contrast Exam date and time: 06/05/2019 4:38 AM Age: 83 years old Clinical history: Condition or disease; Patient HX: F/u acute on chronic sdhs TECHNIQUE: Imaging protocol: Computed tomography of the head without contrast. COMPARISON: CT Brain WO Con 2019-06-04 10:48 FINDINGS: Brain: Increased acute on chronic right subdural hematoma measuring 1 cm, previously 8 mm. Unchanged left frontal subdural hematoma measuring 5 mm. Acute evolving right insular and frontal ope rcular evolving infarct, unchanged size from prior. Mild chronic white matter disease. Right frontal chronic lacunar infarct. Left frontal chronic lacunar infarct. Ventricles: Normal. No ventriculomegaly. Bones/joints: Unremarkable. No acute fracture. Sinuses: Visualized sinuses are unremarkable. No fluid levels. Mastoid air cells: Visualized mastoid air cells are well aerated. Soft tissues: Unremarkable. IMPRESSION: 1. Increased acute on chronic right subdural hematoma measuring 1 cm, previously 8 mm. 2. Unchanged left frontal subdural hematoma measuring 5 mm. 3. Acute evolving right insular and frontal opercular evolving infarct, unchanged size from prior. Thank you for allowing us to participate in the care of your patient. Dictated and Authenticated by: Reji Lockwood MD 06/05/2019 5:00 AM Central Time ([place] & [place]) FINAL REPORT CT BRAIN WITHOUT CONTRAST: I agree with the preliminary report provided. There is slight interval enlargement of the acute on chronic subdural hematoma overlying the right co nvexity with more layered hemorrhage seen along the posterior aspect of the right parietal convexity. There is approximately 1.9 mm of [id number] midline shift where previously it was 1.6 mm. The acute on chronic subdural hematoma involving the left frontal and parietal convexity is stable. There is an evolving acute infarction involving the right frontal lobe surrounding a region of chroni c lacunar infarction involving the anterior right frontal johansen radiata. No hydrocephalus is eviden t. The skull and extracranial soft tissues are within normal limits. POS: BH
[2019-06-05 09:47] LABS: Anion Gap 11 mmol/L (10-20); BUN (Urea Nitrogen) 14 mg/dL (9.8-20.1); Calc. Creatinine Clearance 34 mL/min (70-130); Calcium 7.9 mg/dL (7.8-10.44); Carbon Dioxide 22 mmol/L (23-31); Chloride 106 mmol/L (98-107); Estimated GFR-MDRD 57; Glucose 83 mg/dL (83-110); Potassium 3.2 mmol/L (3.5-5.1); Sodium 136 mmol/L (136-145)
--- NOTE | 2019-06-05 10:48 | PRG ---
DATE OF SERVICE: 06/05/2019 SUBJECTIVE: The patient is seen and examined at the bedside. She is not really improved since the time of admission. OBJECTIVE: VITAL SIGNS: Blood pressure is 107/54, pulse is 80, temperature 97.9, respirations 11, and O2 saturation is 98% on room air. HEENT: Her eyes somewhat deviated to the right side, but when she , she is able to move her eyes to the left too. It is really difficult to assess her current vision. Her sclerae are nonicteric. Oral mucosa is somewhat dry. NECK: Supple. LUNGS: Clear. HEART: S1 and S2 normal. No S3. No S4. ABDOMEN: Soft and nontender. Bowel sounds are present. EXTREMITIES: No clubbing, cyanosis, or edema. NEUROLOGIC: She follows my commands. She has left-sided weakness mainly in the left upper extremity, maybe very mild in the left lower extremity. LABORATORY DATA: White count of 6.4, hemoglobin 10.3, hematocrit 31.3, platelet count is 196,000. Sodium of 136, potassium 3.2, chloride 106, CO2 of 22, BUN 14, creatinine 0.94, glucose 83, and calcium 7.9. Urinalysis showed specific gravity 1.049, 10 of ketones, 1+ blood, 11 to 20 rbc's, 1+ bacteria. A CT of the brain done this morning showed slightly enlarged right subdural hematoma measuring 1 cm previously was 80 mm and unchanged left frontal subdural hematoma. Also, cervical spine x-ray showed very severe degenerative changes of the fossa with some grade 1 anterolisthesis of C2 on C3, C3 on C4, and C4 on C5 due to high-grade fossa DJD. There was no any evidence of fracture or acute traumatic subluxation, so there was finding of advanced cervical spondylosis. IMPRESSION: 1. Acute cerebrovascular accident versus mass effect of her right subdural hematoma. The patient lives alone. We do not know whether she took a fall at home, unwitnessed. The patient was evaluated by neurosurgeon yesterday and they did not think this was related to her hematoma, which was previously present. Since on this CT we see some enlargement of the right-sided subdural hematoma, we will contact the Neurosurgery for further evaluation. Also, the patient will be seen by neurologist, Dr. Delaney today and we will obtain MRI of the brain. 2. Chronic renal insufficiency, improved. This was most likely prerenal to some extent. 3. Hypothyroidism. 4. Hyperlipidemia. 5. Hypertension. 6. Hypokalemia. 7. History of depression. 8. Chronic arthritis. 9. Glaucoma. 10. Bilateral carpal tunnel syndrome per history. PLAN: As mentioned above, continue gentle hydration. Re-consult Neurosurgery. Speech therapy for swallowing evaluation. Continue SCDs for DVT prophylaxis and MRI of the brain with Neurology consultation. The patient's status was discussed with daughter, who is present in the room during my visit and the patient remains full code. Job ID: [id number]
[2019-06-05] MEDS ORDERED: Potassium Chloride 10 MEQ in Premix Bag 1 BAG IVPB SCH (11:00)
--- NOTE | 2019-06-05 14:48 | MRI ---
MRI BRAIN WITHOUT CONTRAST: INDICATION: Stroke. Subdural hematoma. COMPARISON: Comparison is made to MRI of 05/16/2019. FINDINGS: Enlarging right subdural hematoma with acute on chronic components is again noted as described on CT of 06/05/2019. There is now restricted diffusion seen in the right frontal lobe consistent with acute infarct involv ing the insular cortex and right frontal lobe cortex as described on CT. There is gliosis in this re gion on FLAIR sequence. Small left subdural hematoma again noted. Chronic ischemic white matter changes are stable. Intracranial internal carotid arteries show evidence of loss of flow in the intracranial right tech intern al carotid artery in this cavernous portion. There were flow voids seen in the right anterior cerebr al and middle cerebral arteries. The basilar artery shows flow void. IMPRESSION: 1. Acute infarct involving the right frontal lobe with insular cortex involvement. There is gliosis and restricted diffusion. 2. 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 There is flow void seen in the right middle cerebral artery. 3. Bilateral subdural hematomas, slightly larger on the right, producing effacement of the right fro ntal and parietal lobe cortex. This measures up to 1 cm thickness at the level of the lateral ventri cles and is unchanged from yesterday's CT. POS: OFF
--- NOTE | 2019-06-05 14:49 | CON ---
DATE OF TELEMEDICINE CONSULTATION: 06-05-19 CHIEF COMPLAINT: The patient's daughters gave the medical history. Daughter went to lunch on Saturday. The patient was with niece and family. [place] the [place], an hour and a half later she started complaining of blurred vision when she was driving back. She also felt her left side was weak. She has been having dizzy spells due to vertigo. She has spinal stenosis, sinus issues, jaw and neck pain to the TMJ and she was brought in with a question of whether she did have a stroke and the patient is generally pretty highly functional at home and she is quite independent. PREVIOUS MEDICAL HISTORY: Paroxysmal atrial fibrillation, which is remote. She was told her heart rate is normal. She has hypothyroidism, gastroesophageal reflux disease, hypertension, hyperlipidemia. PREVIOUS SURGICAL HISTORY: Carpal tunnel surgery, thyroid surgery, breast nodule surgery, cataract surgery, hysterectomy and cholecystectomy. SOCIAL HISTORY: Lives at home. Daughters help her and she does not smoke or use any drugs. FAMILY HISTORY: Sister at 92 from CVA. Her mother at 86 from a CVA. Father, they do not know much about the father's health issues. Children; she has three daughters, all are healthy. REVIEW OF SYSTEMS: PULMONARY: Negative for cough. GI: Negative for diarrhea, vomiting, and nausea. NEUROLOGIC: Positive for weakness on the left side and dizziness and blurred vision. ENDOCRINE: Positive for hypothyroid dysfunction. DERMATOLOGIC: Negative for rash. HEMATOLOGIC: Negative for any bleeding diathesis or anemia. LABORATORY WORKUP: White count 6.4, hemoglobin 10.3, hematocrit 31.3, platelet count 196. Sodium 135, potassium 4.2, chloride 103, bicarb 21, BUN 14, creatinine 1.23, glucose 114, and liver functions are within normal limits. Urinalysis is negative for any leukocyte esterase. 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 No definite active extravasation noted. The patient's family reported they are not aware of subdural hematomas. PHYSICAL EXAMINATION: VITAL SIGNS: Temperature, it is 97.9, pulse 80, respiratory rate 11, O2 sats 98 %, blood pressure 107/54. GENERAL APPEARANCE: Well-built, well-nourished lady, who is able to follow commands and have a conversation and her cranial nerves; pupils are 4 mm, reactive to light. Normal extraocular movements. Tongue deviates to the left. Normal sensation of face. She has left facial droop and normal hearing bilaterally. Motor, bulk normal, tone normal. Strength 5/5 on the right side; on the left side, she was weak at 3+/5 in the left arm and 4/5 in the left lower extremity. Sensory was normal to touch bilaterally and cerebellar, normal [id number]. Deep tendon reflexes 1 + throughout. IMPRESSION: The patient is an 83-year-old lady with right ICA occlusion, which was also noted on May 16 during the previous admission on a carotid Doppler. At this time, CT angiogram shows right ICA and common carotid occlusion. She is currently pending MRI of the brain to see if she had a fresh stroke. She has had dizzy spells and I suspect all this is related and connected to her right ICA occlusion. TREATMENT RECOMMENDATIONS: 1. MRI of the brain to confirm a new stroke. 2. Consult Vascular Surgery about the right ICA occlusion, whether it needs to be treated with anti-platelet agents or whether she needs surgery. We will follow up with you again tomorrow. Above findings were all discussed with the daughters. Job ID: [id number] [facility]
[2019-06-05] MEDS ORDERED: traMADol HCl 50 MG TAB PO PRN (15:05)
[2019-06-05] MEDS: Acetaminophen 325 MG TAB PO PRN (21:34)
[2019-06-05] MEDS: Latanoprost 0.005% Ophth Soln 2.5 ml Bottle EA EYE SCH (21:34)
[2019-06-05] MEDS: Atorvastatin Calcium 40 MG TAB PO SCH (21:35)
[2019-06-06] MEDS: traMADol HCl 50 MG TAB PO PRN ×2 (01:07→09:00)
[2019-06-06] MEDS: Sodium Chloride 0.9% 1,000 ML IV SCH ×3 (01:20→23:48)
[2019-06-06 08:21] LABS: Anion Gap 12 mmol/L (10-20); BUN (Urea Nitrogen) 14 mg/dL (9.8-20.1); Calc. Creatinine Clearance 37 mL/min (70-130); Calcium 7.8 mg/dL (7.8-10.44); Carbon Dioxide 19 mmol/L (23-31); Chloride 109 mmol/L (98-107); Estimated GFR-MDRD 62; Glucose 71 mg/dL (83-110); Potassium 3.2 mmol/L (3.5-5.1); Sodium 137 mmol/L (136-145)
[2019-06-06] MEDS: Loratadine 10 MG TAB PO SCH (09:00)
[2019-06-06] MEDS: Levothyroxine Sodium 88 MCG TAB PO SCH (09:01)
[2019-06-06] MEDS: Trospium 20 MG TAB PO SCH ×2 (09:02→21:47)
--- NOTE | 2019-06-06 10:10 | PRG ---
DATE OF SERVICE: 06/06/2019 SUBJECTIVE: The patient was seen and examined. I agree with Mohini Story's evaluation on 06/04/2019. The patient is an 83-year-old with a history of stroke, who presented with acute vision changes and left hemiparesis. CT and then, MRI have revealed a right frontal stroke and she has significant vascular compromise with a complete carotid occlusion of the right internal carotid. Also discovered on these images were bilateral subdural hygromas with the right-sided hygroma having some acute component and some mild mass effect. IMPRESSION AND PLAN: I believe the patient's primary issue is related to the ischemic event and vascular issues. I believe that the subdural hygromas are incidental. Treat as appropriate for stroke including antiplatelet agents or anticoagulation as needed and she should have followup imaging for the subdural in 4 weeks. Discussed with the patient and her daughter. Job ID: [id number]
--- NOTE | 2019-06-06 11:03 | PRG ---
DATE OF SERVICE: 06/06/2019 SUBJECTIVE: The patient is seen and examined at the bedside. She seems to be doing slightly better today. Her daughter is present in the room during my visit. I answered multiple questions she has to her satisfaction. OBJECTIVE: VITAL SIGNS: Blood pressure is 119/53, pulse is 88, temperature is 97.7, respirations 16, O2 saturation is 95% on room air. HEENT: Her pupils are responding to light properly. Sclerae are nonicteric. Conjunctivae are pinkish. Oral mucosa is moist. LUNGS: Clear. HEART: S1, S2 normal. ABDOMEN: Soft, nontender. EXTREMITIES: No clubbing, cyanosis . NEUROLOGICAL: She follows my commands. She has a left facial droop. She has left-sided hemiparesis. LABORATORY DATA: Sodium of 137, potassium 3.2, chloride 109, CO2 of 19, BUN 14, creatinine 0.88, glucose 71, calcium 7.8. Urine culture, no growth in 24 hours. MRI of the brain showed, 1. Acute infarct involving the right frontal lobe with insular cortex involvement. There was gliosis and restricted diffusion. 2. 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 There was a flow void seen in the right middle cerebral artery also. 3. Bilateral subdural hematomas slightly larger on the right producing effacement of the right frontal and parietal lobe cortex. IMPRESSION: 1. Left facial droop with left-sided hemiparesis with evidence of acute cerebrovascular accident on MRI. 2. Chronic renal insufficiency, improved with IV fluids. 3. Hypothyroidism. 4. Bilateral hygromas. 5. Hyperlipidemia. 6. Hypertension. 7. Hypokalemia. 8. History of depression. 9. Chronic arthritis. 10. Glaucoma. PLAN: The patient was seen by Dr. Mckeon today and he is okay to use antiplatelet medications, so the patient will be started on aspirin. The patient passed her swallow studies yesterday and she is on diet 2000 calories ADA. She was seen by Dr. Delaney for Neurology evaluation. She recommends Cardiovascular consultation for the patient's right-sided carotid artery occlusion, but Cardiovascular surgeons do not do any operation on those patients we know from the past. We will continue PT and OT. We will continue SCDs for DVT prophylaxis and we will start a process with [facility] to transfer her to [facility] for PT and OT and speech therapy. Job ID: [id number]
--- NOTE | 2019-06-06 13:08 | PRG ---
DATE OF SERVICE: 06/06/2019 This is a telemedicine followup. The daughter was by the bedside. MRI reports are reviewed and the patient had an acute right frontal CVA in addition to slightly larger right frontal subdural hematoma. I also understand the patient had consultations with the vascular surgeon as well and this is not an operable lesion. The patient was also seen by Neurosurgery and they were told subdural does not need surgery at this time. The patient is sitting by the bedside and working with a therapist, seems to be better today. We discussed the results with the daughter and I advised the daughter who has power of tax attorney to call me if needed because she was not present in the room and we can see her as needed. Job ID: [id number]
[2019-06-06] MEDS: Atorvastatin Calcium 40 MG TAB PO SCH (21:46)
[2019-06-06] MEDS: Latanoprost 0.005% Ophth Soln 2.5 ml Bottle EA EYE SCH (21:47)
[2019-06-07 08:09] LABS: #Eosinphils 0.1 thou/uL (0.0-0.7); #Lymphocytes 1.7 thou/uL (1.20-3.40); #Monocytes 0.5 thou/uL (0.11-0.59); #Neutrophils 4.6 thou/uL (1.40-6.50); %Basophils 0.3 % (0.0-1.0); %Eosinophils 0.9 % (0.0-10.0); %Lymphocytes 25.3 % (21.0-51.0); %Monocytes 7.1 % (0.0-10.0); %Neutrophils 66.5 % (42.0-75.0); Hemoglobin 10.2 g/dL (12.0-16.0); Mean Corpuscular HGB CONC 33.8 g/dL (32.0-36.0); Mean Corpuscular Hemoglobin 29.7 pg (27.0-31.0); Mean Corpuscular Volume 87.8 fL (78.0-98.0); Mean Platelet Volume 7.9 fL (7.4-10.4); Platelet Count 179 thou/uL (130-400); RBC Distribution Width 12.4 % (11.5-14.5); Red Blood Cell (RBC) Count 3.44 mill/uL (4.20-5.40); White Blood Cell (WBC) Count 6.9 thou/uL (4.8-10.8)
[2019-06-07] MEDS: Sodium Chloride 0.9% 1,000 ML IV SCH (08:24)
[2019-06-07 08:26] LABS: Anion Gap 8 mmol/L (10-20); BUN (Urea Nitrogen) 12 mg/dL (9.8-20.1); Calc. Creatinine Clearance 39 mL/min (70-130); Calcium 8.2 mg/dL (7.8-10.44); Carbon Dioxide 22 mmol/L (23-31); Chloride 111 mmol/L (98-107); Estimated GFR-MDRD 66; Glucose 92 mg/dL (83-110); Potassium 3.6 mmol/L (3.5-5.1); Sodium 137 mmol/L (136-145)
[2019-06-07] MEDS: Acetaminophen 500 MG TAB PO PRN (09:10)
[2019-06-07] MEDS: Loratadine 10 MG TAB PO SCH (09:10)
[2019-06-07] MEDS: Levothyroxine Sodium 88 MCG TAB PO SCH (09:10)
[2019-06-07] MEDS: Trospium 20 MG TAB PO SCH ×2 (09:10→21:07)
--- NOTE | 2019-06-07 12:06 | PRG ---
DATE OF SERVICE: 06/07/2019 SUBJECTIVE: The patient was seen and examined at the bedside. There are 2 daughters present in the room during my visit, one who lives in [place], [place] and one who lives locally in [place]. The patient is able to eat her diet. She does not choke. She participates in physical therapy. OBJECTIVE: VITAL SIGNS: Blood pressure is 115/59, pulse is 85, temperature is 97.8, respiratory rate is 16, O2 saturation is 94% on room air. HEENT: Her head is atraumatic and normocephalic. Sclerae are nonicteric. Conjunctivae palish. Oral mucosa is moist. LUNGS: Clear. HEART: S1, S2 normal. ABDOMEN: Soft, nontender. Bowel sounds are present. No organomegaly. NEUROLOGICAL: She has a left facial droop. She follows my commands. She has left-sided total hemiparesis. LABORATORY DATA: White count of 6.9, hemoglobin 10.2, hematocrit 30.2, platelet count is 179,000. Sodium is 137, potassium 3.6, chloride 111, CO2 22, BUN 12, creatinine 0.83, calcium 8.2. IMPRESSION: 1. Acute infarct involving the right frontal lobe with insular cortex involvement. 2. Bilateral subdural hematoma slightly larger on the right than left. 3. 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 4. Chronic renal insufficiency, improved with fluids. 5. Hypothyroidism. 6. Bilateral hygromas. 7. Hyperlipidemia. 8. Hypertension. 9. Hypokalemia, resolved. 10. History of depression. 11. Chronic arthritis. 12. Glaucoma. DISCUSSION: The case was discussed with both daughters and I asked them whether they would be fine to start their mother on aspirin and they agreed for 81 mg aspirin once a day and they are aware of increased risk of bleeding. We will continue PT and OT. Continue SCD for DVT prophylaxis and the patient will be a transfer to the rehab as soon as she is approved. A caseworker intake consult was placed yesterday. Job ID: [id number]
[2019-06-07] MEDS: Latanoprost 0.005% Ophth Soln 2.5 ml Bottle EA EYE SCH (21:07)
[2019-06-07] MEDS: Atorvastatin Calcium 40 MG TAB PO SCH (21:07)
[2019-06-08] MEDS: Acetaminophen 500 MG TAB PO PRN ×3 (01:21→15:03)
[2019-06-08] MEDS: Aspirin 81 mg Enteric Coated Tablet PO SCH (10:00)
[2019-06-08] MEDS: Levothyroxine Sodium 88 MCG TAB PO SCH (10:00)
[2019-06-08] MEDS: Trospium 20 MG TAB PO SCH ×2 (10:00→21:22)
[2019-06-08] MEDS: Loratadine 10 MG TAB PO SCH (10:00)
--- NOTE | 2019-06-08 15:22 | PDOC.HOSPP ---
- Subjective Encounter Date: 06/08/19 Encounter Time: 14:40 Subjective: f/u s/p R CVA presumed ischemic/embolic in context of prior bilater subdural hematomas. Appetite decreased and food doesn't taste good. - Objective Vital Signs & Weight: Vital Signs (12 hours) Temp Pulse Resp BP Pulse Ox 06/08/19 11:47 97.7 F 75 16 105/59 L 96 06/08/19 08:00 97.6 F 96 16 110/56 L 96 06/08/19 04:00 97.4 F L 81 14 117/59 L 97 Weight Weight 103 lb 8 oz I&O: 06/07/19 06/08/19 06/09/19 06:59 06:59 06:59 Intake Total 840 480 170 Output Total 100 Balance 740 480 170 Result Diagrams: 06/07/19 07:52 06/07/19 07:52 EKG Reviewed by me: Yes (Tele - SR) Hospitalist ROS - Medication Medications: Active Medications Generic Name Dose Route Start Last Admin Trade Name Freq PRN Reason Stop Dose Admin Acetaminophen 1,000 mg 06/04/19 16:40 06/08/19 15:03 Tylenol PO 1,000 mg Q6H PRN Administration Moderate to Severe Pain Acetaminophen 650 mg 06/05/19 15:05 06/05/19 21:34 Tylenol PO 650 mg Q4H PRN Administration Mild Pain (1-3) Aspirin 81 mg 06/08/19 09:00 06/08/19 10:00 Ecotrin PO 81 mg DAILY STERLING Administration Atorvastatin Calcium 40 mg 06/05/19 21:00 06/07/19 21:07 Lipitor PO 40 mg HS STERLING Administration Latanoprost 1 drop 06/05/19 21:00 06/07/19 21:07 Xalatan 0.005% Ophth Soln EA EYE 1 drop HS STERLING Administration Loratadine 10 mg 06/06/19 09:00 06/08/19 10:00 Claritin PO 10 mg DAILY STERLING Administration Sodium Chloride 10 ml 06/05/19 21:00 06/08/19 09:59 Flush - Normal Saline IVF 10 ml Q12HR STERLING Administration Tramadol HCl 50 mg 06/05/19 15:05 06/08/19 05:29 Ultram PO 50 mg DAILY PRN Administration Moderate Pain (4-7) Trospium 20 mg 06/06/19 09:00 06/08/19 10:00 Trospium PO 20 mg BID STERLING Administration - Exam General Appearance: NAD, awake alert Eye: PERRL, anicteric sclera ENT: normocephalic atraumatic, no oropharyngeal lesions Neck: supple, symmetric, no JVD, no thyromegaly, no lymphadenopathy Heart: RRR, no murmur, no gallops, no rubs, normal peripheral pulses Respiratory: CTAB, no wheezes, no rales, no ronchi Gastrointestinal: soft, non-tender, non-distended, normal bowel sounds Extremities: no cyanosis, no clubbing, no edema Skin: normal turgor, no lesions Neurological: no new deficit, hemiplegia Neurological - other findings: L hemiplegia, dysarthria Musculoskeletal: normal tone Musculoskeletal - other findings: R-sided tone intact Psychiatric: A&O x 3, flat affect Hosp A/P (1) CVA (cerebral vascular accident) Code(s): I63.9 - CEREBRAL INFARCTION, UNSPECIFIED Status: Acute Qualifiers: Laterality of affected vessel: right Plan: ASA 81mg daily, general stroke protocol, Lipitor, Rehab screen pending (2) HTN (hypertension) Code(s): I10 - ESSENTIAL (PRIMARY) HYPERTENSION Status: Chronic Qualifiers: Hypertension type: essential hypertension Qualified Code(s): I10 - Essential (primary) hypertension Plan: Relatively normal BP trend, hold home BP meds currently (3) HLD (hyperlipidemia) Code(s): E78.5 - HYPERLIPIDEMIA, UNSPECIFIED Status: Chronic Plan: Continue Lipitor (4) Hypothyroid Code(s): E03.9 - HYPOTHYROIDISM, UNSPECIFIED Status: Chronic Plan: Continue Levothyroxine (5) Subdural hematoma Code(s): S06.5X9A - TRAUM SUBDR HEM W LOC OF UNSP DURATION, INIT Status: Acute Plan: Medical mgmt, no surgical intervention recommended - Plan plan discussed w/ family, PT/OT, social service worker, speech therapy, DVT proph w/ SCDs Stable currently Continue ASA, Lipitor OOB with PT/mobilize Rehab screening pending Hold home Losartan/HCTZ Trial Megace 40mg TID
[2019-06-08] MEDS ORDERED: Lidocaine 5% Patch TD SCH (21:00)
[2019-06-08] MEDS: Megestrol Acetate 40 MG TAB PO SCH (21:22)
[2019-06-08] MEDS: Atorvastatin Calcium 40 MG TAB PO SCH (21:22)
[2019-06-08] MEDS: Latanoprost 0.005% Ophth Soln 2.5 ml Bottle EA EYE SCH (21:22)
[2019-06-09] MEDS: Acetaminophen 500 MG TAB PO PRN ×2 (01:03→09:52)
[2019-06-09 01:16] LABS: Bilirubin Negative (Negative); Blood, Urine Negative (Negative); Clarity Clear (Clear); Glucose, Urine (Dipstick) Normal (Negative); Leukocyte 250 Leu/uL (Negative); Nitrite 2+ (Negative); Protein, Urine (Dipstick) Negative (Neg-Trace); RBC/HPF 0-3 HPF (0-3); Squamous Epithelial 0-3 HPF (0-3); Urobilinogen Normal mg/dL (Less than 2)
[2019-06-09 01:17] LABS: Bacteria/HPF 1+ HPF (None Seen); Urine Culture Reflex Yes Yes
[2019-06-09] MEDS ORDERED: Levothyroxine Sodium 88 MCG TAB PO SCH (06:00)
[2019-06-09] MEDS ORDERED: Lidocaine Patch Removal TOP SCH (09:00)
[2019-06-09] MEDS: Aspirin 81 mg Enteric Coated Tablet PO SCH (09:52)
[2019-06-09] MEDS: Megestrol Acetate 40 MG TAB PO SCH ×2 (09:52→15:14)
[2019-06-09] MEDS: Loratadine 10 MG TAB PO SCH (09:52)
[2019-06-09] MEDS: Trospium 20 MG TAB PO SCH (09:53)
[2019-06-09 12:28] VITALS: BP 108/56; TEMP 98.1
[2019-06-09] MEDS: Acetaminophen 325 MG TAB PO PRN (15:14)
--- NOTE | 2019-06-10 11:40 | DIS ---
DATE OF ADMISSION: 06/04/2019 DATE OF DISCHARGE: 06/09/2019 DISCHARGE DIAGNOSES: 1. Acute cerebrovascular accident, ischemic involving right frontal lobe and with insular cortex. 2. Bilateral subdural hematoma, subacute. 3. Hypertension, stable. 4. Hyperlipidemia. 5. Hypothyroidism. CONSULTATIONS: 1. Dr. Delaney with Neurology Service. 2. Dr. Peralta with Neurosurgical Service. PERTINENT LABORATORY AND X-RAY FINDINGS: Potassium ranged between 3.2 to 4.2. Creatinine ranged between 0.83 to 1.23. Estimated GFR ranged between 42 to 66. CBC showed a hemoglobin ranged between 10.2 to 12.0. Urine culture dated 06/05/2019, showed [id number] colonies of presumptive lactobacillus. Repeat urine culture dated 06/09/2019, showed a mixed culture. CT of the brain without contrast dated 06/04/2019, showed enlarged right subdural hematoma with a small left subdural hematoma over the left frontal lobe. CT angiogram of the [place] dated 06/04/2019, showed complete occlusion of the right common carotid artery and right internal carotid artery. Cervical spine radiographs dated 06/04/2019, showed no acute fracture or dislocation. CT of the brain without contrast dated 06/05/2019, showed right greater than left subdural hematoma. Acute evolving right insular/frontal opercular infarct. MRI of the brain dated 06/05/2019, showed acute infarct in the right frontal lobe with insular cortex involvement. HOSPITAL COURSE: The patient was initially admitted to the Stroke Unit after initially presenting with acute left-sided weakness in the context of prior bilateral subdural hematoma. The patient underwent general stroke workup including CT imaging of the brain followed by MRI confirming the presence of an acute right-sided infarct, likely ischemic in nature. The patient with left-sided deficit and left hemiplegia with left facial droop. The patient continued to receive ongoing physical, occupational, and speech therapy during her hospital course with recommendations for inpatient rehabilitation after discharge. The patient was evaluated by Neurology and Neurosurgical Services with recommendations for medical management. No acute surgical intervention needed at this time. Overall, the patient did remain clinically stable during the hospital course. I have examined the patient at the time of discharge and discussed followup instructions. The patient and family verbalized understanding and agreement ready for discharge on 06/09/2019. DISCHARGE MEDICATIONS: 1. Lipitor 40 mg p.o. at bedtime. 2. Bimatoprost one drop to each eye at bedtime. 3. Zyrtec 10 mg p.o. daily. 4. Estradiol patch 0.05 mg transdermally q.7 days. 5. Synthroid 88 mcg p.o. daily. 6. Detrol 4 mg p.o. q.a.m. 7. Tramadol 50 mg p.o. daily p.r.n. 8. Enteric-coated aspirin 81 mg p.o. daily. 9. Lidocaine patch 5% one patch transdermally q.24 hours. 10. Megace 40 mg p.o. t.i.d. FOLLOWUP: The patient may follow up with Dr. Shine Garzon after discharge from acute inpatient rehabilitation. CONDITION ON DISCHARGE: Fair. ACTIVITY: Ad-myrna. Standby/contact guard assistance with high fall risk precautions. DIET: Heart healthy. CODE STATUS: Full. DISPOSITION: Discharged to [facility], 06/09/2019. TIME SPENT: Total time preparing and coordinating discharge, 35 minutes. Job ID: [id number]
--- NOTE | 2019-06-11 02:25 | PQF ---
LEILANI SOLANO CHARLES DO [id number] [facility] [id number] CLINICAL DOCUMENTATION CLARIFICATION FORM: POST DISCHARGE Addendum to original discharge summary date: ____ Late entry note date: __ DATE: 06/11/19 ATTN: Pete Rincon Please exercise your independent, professional judgment in responding to the clarification form. Clinical indicators are provided on the bottom of this form for your review Based on your clinical judgment, can you please specify etiology of patient's neurological changes? Please check appropriate box(s): [ x ] Acute CVA [ ] Acute traumatic subdural hematoma [ ] Other diagnosis [ ] Unable to determine For continuity of documentation, please document condition throughout progress notes and discharge summary. Thank You. CLINICAL INDICATORS - SIGNS / SYMPTOMS / LABS Consult 06/04 "presented in the ER for acute left sided vision changes and left sided weakness" Consult 06/04 "Her Ct does show some acute on chronic bilateral subdural hematomas" Consult 06/04 "We do not feel that these are likely the cause of her acute neurological changes" PN 06/05 "Acute CVA versus mass effect of her right subdural hematoma" PN 06/08 "Right CVA presumed ischemic/embolic in context of prior bilateral subdural hematomas" PN 06/08 "Acute traumatic subdural hematoma with LOC" DS 06/09 "presenting with acute left sided weakness in the context of prior bilateral subdural hematoma" RISK FACTORS Consult 06/04-83 years old female Consult 06/04-PAF Consult 06/04-HTN Consult 06/04-HLD TREATMENTS: Collected 06/04-Brain CT Collected 06/04-Brain Angiogram DS 06/09-Neurology consult DS 06/09-Neurosurgery consult MAR 05/09-Aspirin 81mg Oral (This form is maintained as a part of the permanent medical record) 2014 [employer]. All Rights Reserved [email or web address] [not provided] [email or web address]
== END 2019-06-09 15:46 | DRG 64 ==
LOC: ERS 10:42 → 2SE 15:17
PROVIDERS: ADMIT Internal Medicine; ATTEND Internal Medicine
DX: I63.9 Cerebral infarction, unspecified (principal); S06.5X9A Traumatic subdural hemorrhage with loss of consciousness of unspecified duration, initial encounter; G96.0 Cerebrospinal fluid leak; G81.94 Hemiplegia, unspecified affecting left nondominant side; H40.9 Unspecified glaucoma; E03.9 Hypothyroidism, unspecified; K21.9 Gastro-esophageal reflux disease without esophagitis; E78.5 Hyperlipidemia, unspecified; E78.00 Pure hypercholesterolemia, unspecified; M17.11 Unilateral primary osteoarthritis, right knee; M19.042 Primary osteoarthritis, left hand; M19.041 Primary osteoarthritis, right hand; I48.0 Paroxysmal atrial fibrillation; I12.9 Hypertensive chronic kidney disease with stage 1 through stage 4 chronic kidney disease, or unspecified chronic kidney disease; N18.2 Chronic kidney disease, stage 2 (mild); F32.9 Major depressive disorder, single episode, unspecified; G56.03 Carpal tunnel syndrome, bilateral upper limbs; E87.6 Hypokalemia; H53.9 Unspecified visual disturbance; R47.81 Slurred speech; R29.810 Facial weakness; R40.2362 Coma scale, best motor response, obeys commands, at arrival to emergency department; R40.2142 Coma scale, eyes open, spontaneous, at arrival to emergency department; R40.2252 Coma scale, best verbal response, oriented, at arrival to emergency department; R29.702 NIHSS score 2; I65.21 Occlusion and stenosis of right carotid artery; Z98.41 Cataract extraction status, right eye; Z90.710 Acquired absence of both cervix and uterus; Z90.49 Acquired absence of other specified parts of digestive tract; Z88.5 Allergy status to narcotic agent; Z88.0 Allergy status to penicillin; Z88.2 Allergy status to sulfonamides; Z79.899 Other long term (current) drug therapy; Z86.73 Personal history of transient ischemic attack (TIA), and cerebral infarction without residual deficits
CPT/HCPCS: 36415; 36416; 70450; 70496; 70498; 70551; 72040; 80048; 80053; 81001; 84484; 85025; 85610; 85730; 87077; 87086; 87186; 93005; J3480; Q9967; S0179

== ENCOUNTER 2019-08-07 09:31 | Outpatient (CLI) | payer MEDICARE, BC ==
--- NOTE | 2019-08-07 11:00 | CT ---
Exam: CT angiogram abdomen with 3-D rendering: HISTORY: Epigastric pain COMPARISON: Abdomen and pelvic CT scan, 11/19/2018 FINDINGS: Visualized lung bases are clear. Status post cholecystectomy with dilatation of the common bile duct up to 1 cm. Small left renal hypodensity, statistically a small cyst. Multilevel lumbar spine spondylosis with variable severity up to severe canal and lateral recess stenosis including L5-S1 and L3-L4 levels with grade 1 anterolisthesis of L4 on L5 with severe associated stenosis. No evidence for abdominal aortic aneurysm. Generalized atherosclerotic calcific plaques of including the origins of the right and left renal arteries with bilateral mild renal artery origins stenosis using Nascet Criteria. The inferior mesenteric artery is patent. Celiac artery and superior mesenteri c arteries are show no significant stenosis. No abscess or abnormal fluid collection. IMPRESSION: Mild stenotic changes of the origins of the right and left renal arteries. Multilevel lumbar spine canal, lateral recess, and foraminal stenosis with anterolisthesis of L4 on L 5. No evidence for aortic aneurysm. Other findings as above.
[2019-08-07] MEDS ORDERED: Iopamidol 370 76% 100 ML VIAL ONE (14:27)
== END 2019-08-07 09:32 | disposition home or self-care (01) ==
LOC: CT 09:31
PROVIDERS: ATTEND Family Medicine
DX: R10.84 Generalized abdominal pain (principal); R10.13 Epigastric pain; G89.29 Other chronic pain; M48.061 Spinal stenosis, lumbar region without neurogenic claudication; M43.16 Spondylolisthesis, lumbar region; K83.8 Other specified diseases of biliary tract; N28.1 Cyst of kidney, acquired; Z90.49 Acquired absence of other specified parts of digestive tract
CPT/HCPCS: 74175; 82565